=== PATIENT | female | born 1995 | race Caucasian/White ===

== ENCOUNTER 2020-08-08 22:32 | Emergency (ER) | payer BC, MEDICAID ==
[2020-08-08 22:41] VITALS: BP 119/72; PULSE 81
--- NOTE | 2020-08-08 22:57 | EDM.PDOC ---
ED HPI GENERAL MEDICAL PROBLEM - General Chief Complaint: Abdominal Pain Stated Complaint: JODI AMB Time Seen by Provider: 08/08/20 22:42 Source of Information: Reports: Patient, Significant Other (Boyfriend) History Limitations: Reports: No Limitations - History of Present Illness INITIAL COMMENTS - FREE TEXT/NARRATIVE: Ms. Cabrales is a very pleasant 24-year-old woman who is 10 weeks, 3 days gestation by dates (LMP 05/27/2020, she believes) with her second (), who now presents the ED by EMS after developing generalized non-focal abdominal cramps and watery diarrhea around 21:00 tonight. She states that her abdominal pain has waxed and waned, and is currently mild. She states that she has had nausea throughout her , but has not vomited. No vaginal bleeding. No recent constipation, diarrhea, or urinary symptoms. No prior similar symptoms. The patient does not believe that her abdominal pain is related to her diarrhea. She did not take any [id number] or home remedies prior to calling EMS. The patient reports that she had uterine inversion following the delivery of her first child. She had her first appointment with her Chief Order Dispatcher today. She states that everything went well, and that heart tones were obtained. She states that blood was drawn, but she does not know what specific tests were ordered. Her first obstetric ultrasound is scheduled for tomorrow. Here in the ED, the patient is found to be hemodynamically stable, afebrile, saturating 100% on room air. heart tones were measured at 116 bpm. Other than nausea throughout this , the patient denies having a recent fever, chills, sore throat, ear pain, nasal or sinus congestion, cough, dyspnea, chest pain, palpitations, vomiting, constipation, diarrhea, abdominal pain, urinary symptoms, recent weight gain or weight loss, recent bloody bowel movements or black bowel movements, recent joint aches, headaches, or rashes. The patient does not have a PCP. Her Chief Order Dispatcher is Dr. Mikaela Murcia. She has not received an influenza vaccine this season, and declined an offer to get one here in the ED. Abdomen Pain Score (Numeric/FACES): 3 - Related Data Allergies Allergy/AdvReac Type Severity Reaction Status Date / Time No Known Allergies Allergy Verified 03/24/21 22:41 Home Meds: Home Meds . [No Known Home Meds] 04/13/16 [History] Past Medical History HEENT History: Reports: Impaired Vision (wears glasses) : 2 Para: 1 Psychiatric History: Reports: Anxiety, Depression, Suicidal Ideation Hematologic History: Reports: Blood Transfusion(s) - Infectious Disease History Infectious Disease History: Reports: Novel Coronavirus - Past Surgical History HEENT Surgical History: Reports: Oral Surgery (dental extractions) Female Surgical History: Reports: Other (See Below) (Replacement of inverted uterus) Social & Family History - Tobacco Use Tobacco Use Status *Q: Never Tobacco User Second Hand Smoke Exposure: No - Caffeine Use Caffeine Use: Reports: None - Alcohol Use Alcohol Use History: No - Recreational Drug Use Recreational Drug Use: No - Living Situation & Occupation Living situation: Reports: Single, with Significant Other (Boyfriend), with Family (Son) Occupation: Unemployed ED ROS GENERAL - Review of Systems Review Of Systems: Comprehensive ROS is negative, except as noted in HPI. ED EXAM, GENERAL - Physical Exam Exam: See Below Exam Limited By: No Limitations General Appearance: Alert, WD/WN, No Apparent Distress Eye Exam: Bilateral Eye: EOMI, Normal Inspection Ears: Normal External Exam, Hearing Grossly Normal Nose: Normal Inspection Throat/Mouth: Normal Inspection, Normal Lips, Normal Voice, No Airway Compromise Head: Atraumatic, Normocephalic Neck: Normal Inspection, Full Range of Motion Respiratory/Chest: No Respiratory Distress, Lungs Clear, Normal Breath Sounds, No Accessory Muscle Use Cardiovascular: Normal Peripheral Pulses, Regular Rate, Rhythm, No Edema, No Gallop, No JVD, No Murmur, No Rub Peripheral Pulses: 3+: Radial (L), Radial (R) GI/Abdominal: Normal Bowel Sounds, Soft, No Organomegaly, No Distention, No Ab normal Bruit, No Mass, Tender (mild, generalized, not-focal) Back Exam: Normal Inspection, Full Range of Motion, NT Extremities: Normal Inspection, Normal Range of Motion, No Pedal Edema, Normal Capillary Refill Neurological: Alert, Oriented, Normal Cognition, No Motor/Sensory Deficits Psychiatric: Normal Affect Skin Exam: Warm, Dry, Intact, Normal Color, No Rash Course - Vital Signs Last Recorded V/S: Last Vital Signs Temp 36.6 C 08/08/20 22:38 Pulse 81 08/08/20 22:38 Resp 18 08/08/20 22:38 BP 119/72 08/08/20 22:38 Pulse Ox 100 08/08/20 22:38 - Orders/Labs/Meds Orders: Active Orders 24 hr Category Date Time Status Heart Tones [RC] ASDIRECTED Care 08/08/20 23:16 Active OB 1st Tri Sgl 1st Gest [US] Stat Exams 08/08/20 22:57 Taken PATIENT RETYPE [BBK] Routine Lab 08/08/20 23:55 Ordered Labs: Laboratory Tests 08/08/20 08/08/20 Range/Units 23:13 23:13 HCG, Quant 50723.0 mIU/mL Blood Type AB POSITIVE - Re-Assessments/Exams Free Text/Narrative Re-Assessment/Exam: 08/08/20 22:51 As above, the patient is 10 weeks 3 days gestation by dates, and had an uneventful first OB appointment today, but then developed generalized abdominal cramps with diarrhea around 21:00 this evening. No vaginal bleeding. She has had nausea throughout this entire , but no recent vomiting. heart tones here in the ED were measured at 116 bpm. On examination, she has active bowel sounds with mild generalized abdominal tenderness. 08/08/20 22:[address] Thornton at 22:52. He recommended that we proceed with an obstetric ultrasound, as well as a quantitative hCG and ABO/Rh. He mentioned that Dr. Murcia takes her own call, therefore he recommended that I call her back with those results. 08/09/20 00:09 The patient's quantitative hCG is 31,998. Her blood type is A-Pos. 08/09/20 00:21 Transabdominal obstetric ultrasound is read by Kunal as "Single live intrauterine gestation approximately 11-week 3-day gestational age." 08/09/20 00:[address] Murcia at 00:23. She is not recommending any further work-up tonight. Patient may take OTC loperamide if she wishes. Dr. Murcia will cancel the ultrasound scheduled for later today. 08/09/20 00:28 Test results discussed with the patient and her boyfriend. The patient declined an offer for loperamide. Departure - Departure Time of Disposition: 00:28 Disposition: Home, Self-Care 01 Condition: Good Clinical Impression: Abdominal cramps, First trimester , Diarrhea - Discharge Information *PRESCRIPTION DRUG MONITORING PROGRAM REVIEWED*: Not Applicable *COPY OF PRESCRIPTION DRUG MONITORING REPORT IN PATIENT CASSANDRA: Not Applicable Referrals: Mikaela Murcia MD [Primary Care Provider] - Forms: ED Department Discharge Additional Instructions: You were seen in the emergency room after developing generalized abdominal cramps and diarrhea tonight in the setting of being . Work-up in the ER included a quantitative hCG, a blood typing, and an obstetric ultrasound. Your quantitative hCG is 31,998, your blood type is A+, and the obstetric ultrasound found you to have a single at 11 weeks 3 days, with no abnormalities seen. Your case was discussed with your supervisor bleach plant, Dr. Mikaela Murcia, who advised that you may take [id number] loperamide to treat your diarrhea, if you wish. The obstetric ultrasound that was scheduled for today will be canceled. Follow-up with Dr. Murcia after next scheduled appointment. If any other problems, please do not hesitate to return to the ER. Sepsis Event Note (ED) - Evaluation Sepsis Screening Result: No Definite Risk - Focused Exam Vital Signs: Vital Signs Temp Pulse Resp BP Pulse Ox 08/08/20 22:38 36.6 C 81 18 119/72 100 - My Orders Last 24 Hours: My Active Orders 08/08/20 22:57 OB 1st Tri Sgl 1st Gest [US] Stat 08/08/20 23:16 Heart Tones [RC] ASDIRECTED 08/08/20 23:55 PATIENT RETYPE [BBK] Routine - Assessment/Plan Last 24 Hours: My Active Orders 08/08/20 22:57 OB 1st Tri Sgl 1st Gest [US] Stat 08/08/20 23:16 Heart Tones [RC] ASDIRECTED 08/08/20 23:55 PATIENT RETYPE [BBK] Routine
--- NOTE | 2020-08-09 09:16 | US ---
First trimester obstetrical ultrasound: Multiple real-time images were obtained transabdominally. Comparison: No prior study for current is available. Dates: Current ultrasound: [facility] 02/24/21, gestational age 11 weeks 3 days Single intrauterine gestational sac is seen. Small embryo is identified. No subchorionic hemorrhage is seen. Maternal ovaries are seen and appear within normal limits. No free fluid is identified. Measurements: Norco-rump length: 4.53 cm - 11 weeks 3 days Heart rate: 158 bpm Impression: 1. Single intrauterine gestation. Dates as noted above. 2. No complicating process is seen by ultrasound exam. Diagnostic code #1 I agree with preliminary report from [facility], finalized on 08/09/20, 1:19 AM CDT
== END 2020-08-09 00:40 | disposition home or self-care (01) ==
LOC: JD.ED 22:32
DX: O99.891 Other specified diseases and conditions complicating pregnancy (principal); R10.84 Generalized abdominal pain; R19.7 Diarrhea, unspecified; Z3A.11 11 weeks gestation of pregnancy
CPT/HCPCS: 36415; 76801; 76801-26; 84702; 86900; 86901; 99283; 99285-25

== ENCOUNTER 2021-02-26 11:59 | Inpatient (IN) | payer MEDICAID ==
[~2021-02-26 11:59] MED LIST: Bupivacaine 0.25% 10 ML SDV ONE; ePHEDrine 50 MG/ML SDV ONE
[2021-02-26] MEDS ORDERED: Ondansetron 4 MG/2 ML SDV IVPUSH PRN (12:13)
[2021-02-26] MEDS ORDERED: Nalbuphine 10 MG/1 ML Vial IVPUSH PRN (12:13)
[2021-02-26] MEDS ORDERED: Sodium Chloride 0.9% 10 ML Syringe FLUSH PRN (12:13)
[2021-02-26] MEDS ORDERED: Oxytocin/Lactated Ringers 10 UNIT/1,000 ML BAG IV SCH ×2 (12:15)
--- NOTE | 2021-02-26 12:15 | PCM.LDHP ---
L&D History of Present Illness - General Date of Service: 02/26/21 Admit Problem/Dx: Patient Status Order with Admit Dx/Problem 02/26/21 12:13 Patient Status [ADT] Routine Admission Diagnosis/Problem Admission Diagnosis/Problem Normal in third trimester Source of Information: Patient History Limitations: Reports: No Limitations - History of Present Illness Introduction:: Patient is a 25 y/o at 39 2/7 wks who presents for elective IOL. Doing well. - Related Data Allergies/Adverse Reactions: Allergies Allergy/AdvReac Type Severity Reaction Status Date / Time No Known Allergies Allergy Verified 08/08/20 22:41 Home Medications: Home Meds . 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: , Other (See Below) : 2 Para: 1 LMP (Approximate): Other OB/BYN History: uterine inversion with 2016 delivery Psychiatric History: Reports: Anxiety, Depression Hematologic History: Reports: Blood Transfusion(s) Other Hematologic History: 2016 with uterine inversion - Infectious Disease History Infectious Disease History: Reports: Novel Coronavirus - Past Surgical History HEENT Surgical History: Reports: Oral Surgery (dental extractions) Female Surgical History: Reports: Other (See Below) (Replacement of inverted uterus) Social & Family History - Family History Psychiatric: Reports: Depression - Tobacco Use Tobacco Use Status *Q: Never Tobacco User - Caffeine Use Caffeine Use: Reports: None - Alcohol Use Alcohol Use History: No - Recreational Drug Use Recreational Drug Use: No - Living Situation & Occupation Living situation: Reports: Single, with Significant Other (Boyfriend), with Family (Son) Occupation: Unemployed H&P Review of Systems - Review of Systems: Review Of Systems: See Below General: Reports: No Symptoms Pulmonary: Reports: No Symptoms Cardiovascular: Reports: No Symptoms Gastrointestinal: Reports: No Symptoms Genitourinary: Reports: No Symptoms Musculoskeletal: Reports: No Symptoms Neurological: Reports: No Symptoms L&D Exam - Exam Exam: See Below - OB Specific Contraction Intensity: Irritability Movement: Active Heart Tones: Present Heart Tones per Min: 140 Presentation: Vertex - Ornelas Score Ornelas Score Cervix Position: Midposition Ornelas Score Consistency: Soft Ornelas Score Effacement: 51-70% Ornelas Score Dilation: 1-2 cm Ornelas Score Infant's Station: -3 Ornelas Score Total: 6 - Exam General: Alert, Oriented, Cooperative Lungs: Clear to Auscultation, Normal Respiratory Effort Cardiovascular: Regular Rate, Regular Rhythm GI/Abdominal Exam: Soft, Non-Tender Genitourinary: Normal external exam Extremities: Normal Inspection Skin: Warm, Dry, Intact - Problem List (1) 39 weeks gestation of SNOMED Code(s): 26176867 ICD Code: Z3A.39 - 39 WEEKS GESTATION OF Status: Acute Current Visit: Yes (2) Marginal insertion of umbilical cord SNOMED Code(s): 02131896 ICD Code: [id number] - Status: Acute Current Visit: Yes (3) History of uterine inversion SNOMED Code(s): 307663695, 658815279 ICD Code: Z87.42 - PERSONAL HISTORY OF OTH DISEASES OF THE FEMALE GENITAL TRACT Status: Acute Current Visit: Yes Problem List Initiated/Reviewed/Updated: Yes Orders Last 24hrs: Active Orders 24 hr Category Date Time Status Patient Status [ADT] Routine ADT 02/26/21 12:13 Ordered Communication Order [RC] ASDIRECTED Care 02/26/21 12:13 Ordered Communication Order [RC] ASDIRECTED Care 02/26/21 12:13 Ordered Communication Order [RC] ASDIRECTED Care 02/26/21 12:13 Ordered Heart Tones [RC] ASDIRECTED Care 02/26/21 12:13 Ordered Monitoring [RC] INTERMITTENT Care 02/26/21 12:13 Ordered Non Stress Test [RC] PER UNIT ROUTINE Care 02/26/21 12:13 Ordered Notify Provider [RC] ASDIRECTED Care 02/26/21 12:13 Ordered Notify Provider [RC] PRN Care 02/26/21 12:13 Ordered Peripheral IV Care [RC] . DIRECTED Care 02/26/21 12:13 Ordered Up ad [place]ul[place] [RC] ASDIRECTED Care 02/26/21 12:13 Ordered Vaginal Exam [RC] ASDIRECTED Care 02/26/21 12:13 Ordered Vital Signs [RC] ASDIRECTED Care 02/26/21 12:13 Ordered Regular Diet [DIET] Diet 02/26/21 Lunch Ordered CBC W/O DIFF,HEMOGRAM [HEME] Routine Lab 02/26/21 12:13 Ordered CORONAVIRUS COVID-19 BRENDA [MOLEC] Stat Lab 02/26/21 12:15 Ordered RAPID PLASMA REAGIN,RPR [CHEM] Routine Lab 02/26/21 12:13 Ordered TYPE AND SCREEN [BBK] Routine Lab 02/26/21 12:13 Ordered Lactated Ringers [Ringers, Lactated] 1,000 ml Med 02/26/21 12:15 Ordered IV ASDIRECTED Nalbuphine [Nubain] Med 02/26/21 12:13 Ordered 10 mg IVPUSH Q2H PRN Ondansetron [Zofran] Med 02/26/21 12:13 Ordered 4 mg IVPUSH Q4H PRN Oxytocin/Lactated Ringers [Pitocin in LR 10 Units/1,000 Med 02/26/21 12:15 Ordered ML] 10 unit in 1,000 ml IV .CONTINUOUS Oxytocin/Lactated Ringers [Pitocin in LR 10 Units/1,000 Med 02/26/21 12:15 Ordered ML] 10 unit in 1,000 ml IV TITRATE Sodium Chloride 0.9% [Saline Flush] Med 02/26/21 12:13 Ordered 10 ml FLUSH ASDIRECTED PRN Electronic Heart Tones Ext w TOCO [WOMSER] Oth 02/26/21 12:13 Ordered Routine Electronic Heart Tones Internal [WOMSER] Per Unit Oth 02/26/21 12:13 Ordered Routine Peripheral IV Insertion Adult [OM.PC] Routine Oth 02/26/21 12:13 Ordered Resuscitation Status Routine Resus Stat 02/26/21 12:13 Ordered Assessment/Plan Comment:: * Labs to be done * GBS negative * Pitocin and eventual AROM for IOL * Pain management per patient preference * cleaning staff supervisor aware of patient history. Reviewed again recurrence risk of inversion not well documented given rare event in general. * Anticipate
[2021-02-26] MEDS: Lactated Ringers 1,000 ML IV SCH ×2 (14:38→18:34)
[2021-02-26] MEDS ORDERED: ePHEDrine 50 MG/ML SDV IVPUSH PRN (18:41)
[2021-02-26] MEDS ORDERED: diphenhydrAMINE 50 MG/ML SDV IVPUSH PRN (18:41)
[2021-02-26] MEDS ORDERED: Bupivacaine/fentaNYL/NS 100 ML Bag EPIDUR PRN (18:41)
[2021-02-26] MEDS ORDERED: fentaNYL 100 MCG/2 ML SDV EPIDUR PRN (18:41)
--- NOTE | 2021-02-26 19:14 | PCM.PREANE ---
Preanesthetic Assessment - Procedure Proposed Procedure: epidural - Anesthesia/Transfusion/Family Hx Anesthesia History: Prior Anesthesia Without Reaction Family History of Anesthesia Reaction: No Transfusion History: Prior Transfusion Without Reaction - Review of Systems General: Fatigue, Malaise Pulmonary: No Symptoms Cardiovascular: No Symptoms Gastrointestinal: Abdominal Pain (labor) Neurological: No Symptoms Other: Reports: None - Physical Assessment Vital Signs: Last Vital Signs Temp 36.4 C 02/26/21 12:13 Pulse Resp 14 02/26/21 12:13 BP 131/79 02/26/21 12:13 Pulse Ox 99 02/26/21 12:13 Height: 1.75 m Weight: 115.53 kg ASA Class: 2 Mental Status: Alert & Oriented x3 Airway Class: Mallampati = 2 Dentition: Reports: Normal Dentition Thyro-Mental Finger Breadths: 3 Mouth Opening Finger Breadths: 2 ROM/Head Extension: Full Lungs: Clear to Auscultation, Normal Respiratory Effort Cardiovascular: Regular Rate, Regular Rhythm - Lab Values: Laboratory Last Values WBC 7.68 K/mm3 (3.98-10.04) 02/26/21 12:13 RBC 3.99 M/mm3 (3.98-5.22) 02/26/21 12:13 Hgb 11.2 gm/dl (11.2-15.7) 02/26/21 12:13 Hct 35.7 % (34.1-44.9) 02/26/21 12:13 MCV 89.5 fl (79.4-94.8) D 02/26/21 12:13 MCH 28.1 pg (25.6-32.2) 02/26/21 12:13 MCHC 31.4 g/dl (32.2-35.5) L 02/26/21 12:13 RDW Std Deviation 53.6 fL (36.4-46.3) H 02/26/21 12:13 Plt Count 224 K/mm3 (182-369) 02/26/21 12:13 MPV 9.4 fl (9.4-12.3) 02/26/21 12:13 SARS-CoV-2 RNA (BRENDA) Negative (NEGATIVE) 02/26/21 12:27 Blood Type AB POSITIVE 02/26/21 13:22 Gel Antibody Screen Negative 02/26/21 13:22 - Allergies Allergies/Adverse Reactions: Allergies Allergy/AdvReac Type Severity Reaction Status Date / Time No Known Allergies Allergy Verified 02/26/21 14:23 - Anesthesia Plan Pre-Op Medication Ordered: None - Acknowledgements Anesthesia Type Planned: Epidural Pt an Appropriate Candidate for the Planned Anesthesia: Yes Alternatives and Risks of Anesthesia Discussed w Pt/Guardian: Yes Pt/Guardian Understands and Agrees with Anesthesia Plan: Yes PreAnesthesia Questionnaire HEENT History: Reports: Impaired Vision Other HEENT History: glasses Gastrointestinal History: Reports: GERD 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: , Other (See Below) Other OB/BYN History: uterine inversion with 2016 delivery Psychiatric History: Reports: Anxiety, Depression Hematologic History: Reports: Blood Transfusion(s) Other Hematologic History: 2016 with uterine inversion - Infectious Disease History Infectious Disease History: Reports: Novel Coronavirus - Past Surgical History HEENT Surgical History: Reports: Oral Surgery, Other (See Below) Other HEENT Surgeries/Procedures: [place] teeth out Female Surgical History: Reports: Other (See Below) - SUBSTANCE USE Tobacco Use Status *Q: Never Tobacco User Tobacco Use Within Last Twelve Months: No Recreational Drug Use History: No - HOME MEDS Home Medications: Home Meds Citalopram Hydrobromide [Celexa] 20 mg PO DAILY 02/26/21 [History] Ferrous Sulfate [Iron] 325 mg PO DAILY 02/26/21 [History] Pnv No.95/Ferrous Fum/Folic AC [ Tablet] 1 each PO DAILY 02/26/21 [History] - CURRENT (IN HOUSE) MEDS Current Meds: Current Medications Diphenhydramine HCl (Diphenhydramine 50 Mg/Ml Sdv) 25 mg IVPUSH Q6H PRN PRN Reason: pruritis Ephedrine Sulfate (Ephedrine 50 Mg/Ml Sdv) 5 mg IVPUSH ASDIRECTED PRN PRN Reason: Hypotension Fentanyl (Fentanyl 100 Mcg/2 Ml Sdv) 100 mcg EPIDUR Q3H PRN PRN Reason: Pain Last Admin: 02/26/21 18:51 Dose: 100 mcg Documented by: Fentanyl/Bupivacaine HCl (Bupivacaine/Fentanyl/Ns 100 Ml Bag) 100 ml EPIDUR ASDIRECTED PRN PRN Reason: Pain Last Admin: 02/26/21 18:51 Dose: 100 ml Documented by: Oxytocin/Lactated Ringer's (Pitocin In Lr 10 Units/1,000 Ml) 10 unit in 1,000 mls @ 12 mls/hr IV TITRATE TRAVIS; Protocol Last Titration: 02/26/21 18:35 Dose: 6 munits/min, 36 mls/hr Documented by: Oxytocin/Lactated Ringer's (Pitocin In Lr 10 Units/1,000 Ml) 10 unit in 1,000 mls @ 500 mls/hr IV .CONTINUOUS TRAVIS Lactated Ringer's (Ringers, Lactated) 1,000 mls @ 40 mls/hr IV ASDIRECTED TRAVIS Last Admin: 02/26/21 18:34 Dose: 40 mls/hr Documented by: Nalbuphine HCl (Nalbuphine 10 Mg/1 Ml Vial) 10 mg IVPUSH Q2H PRN PRN Reason: Pain Ondansetron HCl (Ondansetron 4 Mg/2 Ml Sdv) 4 mg IVPUSH Q4H PRN PRN Reason: Nausea/Vomiting Sodium Chloride (Sodium Chloride 0.9% 10 Ml Syringe) 10 ml FLUSH ASDIRECTED PRN PRN Reason: Keep Vein Open
--- NOTE | 2021-02-26 20:24 | PCM.PNLD ---
Labor Progress Note - VS & Meds Vital Signs: Last Vital Signs Temp 36.4 C 02/26/21 12:13 Pulse Resp 14 02/26/21 12:13 BP 131/79 02/26/21 12:13 Pulse Ox 99 02/26/21 12:13 Active Medications: Current Medications Diphenhydramine HCl (Diphenhydramine 50 Mg/Ml Sdv) 25 mg IVPUSH Q6H PRN PRN Reason: pruritis Ephedrine Sulfate (Ephedrine 50 Mg/Ml Sdv) 5 mg IVPUSH ASDIRECTED PRN PRN Reason: Hypotension Fentanyl (Fentanyl 100 Mcg/2 Ml Sdv) 100 mcg EPIDUR Q3H PRN PRN Reason: Pain Last Admin: 02/26/21 18:51 Dose: 100 mcg Documented by: Fentanyl/Bupivacaine HCl (Bupivacaine/Fentanyl/Ns 100 Ml Bag) 100 ml EPIDUR ASDIRECTED PRN PRN Reason: Pain Last Admin: 02/26/21 18:51 Dose: 100 ml Documented by: Oxytocin/Lactated Ringer's (Pitocin In Lr 10 Units/1,000 Ml) 10 unit in 1,000 mls @ 12 mls/hr IV TITRATE TRAVIS; Protocol Last Titration: 02/26/21 18:35 Dose: 6 munits/min, 36 mls/hr Documented by: Oxytocin/Lactated Ringer's (Pitocin In Lr 10 Units/1,000 Ml) 10 unit in 1,000 mls @ 500 mls/hr IV .CONTINUOUS TRAVIS Lactated Ringer's (Ringers, Lactated) 1,000 mls @ 40 mls/hr IV ASDIRECTED TRAVIS Last Admin: 02/26/21 18:34 Dose: 40 mls/hr Documented by: Nalbuphine HCl (Nalbuphine 10 Mg/1 Ml Vial) 10 mg IVPUSH Q2H PRN PRN Reason: Pain Ondansetron HCl (Ondansetron 4 Mg/2 Ml Sdv) 4 mg IVPUSH Q4H PRN PRN Reason: Nausea/Vomiting Sodium Chloride (Sodium Chloride 0.9% 10 Ml Syringe) 10 ml FLUSH ASDIRECTED PRN PRN Reason: Keep Vein Open - Uterine Contractions Uterine Monitoring Mode: External [place] Contraction Intensity: Mild - Monitoring Monitor Mode: External Ultrasound Heart Rate (FHR) Baseline: 120 Heart Rate (FHR) Variability: Moderate (6-25 bpm) Accelerations: Present, 15x15 Decelerations: None Strip Review: Category I - Vaginal Exam Dilation (cm): 4 Effacement (Percent): 80 Station: -2 Cervical Position: Midposition - Labor Progress (Free Text) Labor Progress: AROM done around 1600. Became more uncomfortable and just completed epidural around 191. RN team with difficulty picking up contractions. Pitocin currently at 8. IUPC placed. Very small/weak contraction noted. Will continue to increase per protocol
[2021-02-26] MEDS ORDERED: Terbutaline 1 MG/ML SDV ONE (22:35)
[2021-02-26] MEDS ORDERED: Methylergonovine 0.2 MG/1 ML Amp IM STA (23:38)
--- NOTE | 2021-02-26 23:39 | PCM.DEL ---
L & D Note - General Info Date of Service: 02/26/21 - Delivery Note Labor: Induced by ARM, Induced by Oxytocin Delivery Outcome: Livebirth Infant Delivery Method: Spontaneous Vaginal Delivery-Single Infant Delivery Mode: Spontaneous Presentation: Vertex Nuchal Cord: None Anesthesia Type: Epidural Amniotic Fluid Description: Clear Episiotomy Type: None Laceration: None Placenta: Intact, Spontaneous Cord: 3 Vessels Estimated Blood Loss: 150 Resuscitation Needed: Yes [place]: Bulb Syringe, Stimulated, Warmed, [place] Used, Warmer Used Delivery Comments (Free Text/Narrative):: Patient found to be complete and began pushing. With maternal pushing effort head delivered from JEANNINE presentation. No nuchal cord present. With gentle downward traction the shoulders and body delivered. Infant placed on maternal abdomen. Cord clamped and cut. Cord blood obtained. Placenta allowed time to separate and expelled intact. Inspection of perineum showed no lacerations. There was slightly poor tone to the BONIFACIO and so give 0.2 mg of methergine. - General Info Date of Service: 02/26/21 - Patient Data Vitals - Most Recent: Last Vital Signs Temp 36.4 C 02/26/21 12:13 Pulse Resp 14 02/26/21 12:13 BP 131/79 02/26/21 12:13 Pulse Ox 99 02/26/21 12:13 Weight - Most Recent: 115.53 kg - Problem List & Annotations (1) 39 weeks gestation of SNOMED Code(s): 51183678 Code(s): Z3A.39 - 39 WEEKS GESTATION OF Status: Acute Current Visit: Yes (2) Marginal insertion of umbilical cord SNOMED Code(s): 03231827 Code(s): YEK1475 - Status: Acute Current Visit: Yes (3) History of uterine inversion SNOMED Code(s): 171463624, 022630871 Code(s): Z87.42 - PERSONAL HISTORY OF OTH DISEASES OF THE FEMALE GENITAL TRACT Status: Acute Current Visit: Yes - Problem List Review Problem List Initiated/Reviewed/Updated: Yes - My Orders Last 24 Hours: My Active Orders 02/26/21 Lunch Regular Diet [DIET] 02/26/21 12:13 Patient Status [ADT] Routine Communication Order [RC] ASDIRECTED Communication Order [RC] ASDIRECTED Communication Order [RC] ASDIRECTED Notify Provider [RC] ASDIRECTED Notify Provider [RC] PRN Peripheral IV Care [RC] Q4HR Up ad [place] [RC] ASDIRECTED Vital Signs [RC] 03,,, Nalbuphine [Nubain] 10 mg IVPUSH Q2H PRN Ondansetron [Zofran] 4 mg IVPUSH Q4H PRN Sodium Chloride 0.9% [Saline Flush] 10 ml FLUSH ASDIRECTED PRN Electronic Heart Tones Ext w TOCO [WOMSER] Routine Electronic Heart Tones Internal [WOMSER] Per Unit Routine Peripheral IV Insertion Adult [OM.PC] Routine Resuscitation Status Routine 02/26/21 12:15 Lactated Ringers [Ringers, Lactated] 1,000 ml IV ASDIRECTED Oxytocin/Lactated Ringers [Pitocin in LR 10 Units/1,000 ML] 10 unit in 1,000 ml IV .CONTINUOUS Oxytocin/Lactated Ringers [Pitocin in LR 10 Units/1,000 ML] 10 unit in 1,000 ml IV TITRATE 02/26/21 23:36 Patient Status Manage Transfer [TRANSFER] Routine 02/26/21 23:38 Methylergonovine [Methergine] 0.2 mg IM NOW STA 02/27/21 09:00 Citalopram [Celexa] 20 mg PO DAILY - Assessment Assessment:: PPD#0 - Plan Plan:: * Routine cares * Breast feeding * Discharge home in 2 days
[2021-02-27] MEDS ORDERED: Witch Hazel Medicated Pads 40/Jar TOP PRN (00:43)
[2021-02-27] MEDS ORDERED: Benzocaine/Menthol 20%-0.5% Spray 78 GM Cannister TOP PRN (00:43)
[2021-02-27] MEDS ORDERED: Docusate Sodium 100 MG Cap PO PRN (00:43)
[2021-02-27] MEDS: Ibuprofen 600 MG Tab PO PRN ×3 (00:59→19:33)
--- NOTE | 2021-02-27 07:51 | PCM.PNPP ---
- General Info Date of Service: 02/27/21 Functional Status: Reports: Pain Controlled, Tolerating Diet, Ambulating, Urinating - Review of Systems General: Reports: No Symptoms Pulmonary: Reports: No Symptoms Cardiovascular: Reports: No Symptoms Gastrointestinal: Reports: No Symptoms Genitourinary: Reports: No Symptoms Musculoskeletal: Reports: No Symptoms Neurological: Reports: No Symptoms - General Info Date of Service: 02/27/21 - Patient Data Vital Signs - Most Recent: Last Vital Signs Temp 36.4 C 02/26/21 12:13 Pulse Resp 14 02/26/21 12:13 BP 131/79 02/26/21 12:13 Pulse Ox 99 02/26/21 12:13 Weight - Most Recent: 115.53 kg I&O - Last 24 Hours: Intake & Output 02/26/21 02/27/21 02/27/21 22:59 06:59 14:59 Intake Total 3900 Output Total 450 172 Balance -450 3728 Lab Results - Last 24 Hours: Laboratory Results - last 24 hr 02/26/21 02/26/21 02/26/21 Range/Units 12:13 12:27 13:22 WBC 7.68 (3.98-10.04) K/mm3 RBC 3.99 (3.98-5.22) M/mm3 Hgb 11.2 (11.2-15.7) gm/dl Hct 35.7 (34.1-44.9) % MCV 89.5 D (79.4-94.8) fl MCH 28.1 (25.6-32.2) pg MCHC 31.4 L (32.2-35.5) g/dl RDW Std Deviation 53.6 H (36.4-46.3) fL Plt Count 224 (182-369) K/mm3 MPV 9.4 (9.4-12.3) fl RPR Non-reactive (NONREACTIVE) SARS-CoV-2 RNA (BRENDA) Negative (NEGATIVE) Blood Type Gel Antibody Screen 02/26/21 Range/Units 13:22 WBC (3.98-10.04) K/mm3 RBC (3.98-5.22) M/mm3 Hgb (11.2-15.7) gm/dl Hct (34.1-44.9) % MCV (79.4-94.8) fl MCH (25.6-32.2) pg MCHC (32.2-35.5) g/dl RDW Std Deviation (36.4-46.3) fL Plt Count (182-369) K/mm3 MPV (9.4-12.3) fl RPR (NONREACTIVE) SARS-CoV-2 RNA (BRENDA) (NEGATIVE) Blood Type AB POSITIVE Gel Antibody Screen Negative Med Orders - Current: Current Medications Acetaminophen (Acetaminophen 325 Mg Tab) 650 mg PO Q4H PRN PRN Reason: mild pain or fever Benzocaine/Menthol (Benzocaine/Menthol 20%-0.5% [place] 78 Gm Cannister) 0 gm TOP ASDIRECTED PRN PRN Reason: Perineal Comfort Measure Last Admin: 02/27/21 00:58 Dose: 1 can Documented by: Citalopram Hydrobromide (Citalopram 20 Mg Tab) 20 mg PO DAILY TRAVIS Docusate Sodium (Docusate Sodium 100 Mg Cap) 100 mg PO BID PRN PRN Reason: Constipation Ibuprofen (Ibuprofen 600 Mg Tab) 600 mg PO Q6H PRN PRN Reason: Mild pain or fever Last Admin: 02/27/21 00:59 Dose: 600 mg Documented by: Rajinder Grover (Rajinder Grover Medicated Pads 40/Jar) 1 pad TOP ASDIRECTED PRN PRN Reason: Perineal Comfort Measure Last Admin: 02/27/21 00:59 Dose: 1 tub Documented by: Discontinued Medications Diphenhydramine HCl (Diphenhydramine 50 Mg/Ml Sdv) 25 mg IVPUSH Q6H PRN PRN Reason: pruritis Ephedrine Sulfate (Ephedrine 50 Mg/Ml Sdv) 5 mg IVPUSH ASDIRECTED PRN PRN Reason: Hypotension Fentanyl (Fentanyl 100 Mcg/2 Ml Sdv) 100 mcg EPIDUR Q3H PRN PRN Reason: Pain Last Admin: 02/26/21 18:51 Dose: 100 mcg Documented by: Fentanyl/Bupivacaine HCl (Bupivacaine/Fentanyl/Ns 100 Ml Bag) 100 ml EPIDUR ASDIRECTED PRN PRN Reason: Pain Last Admin: 02/26/21 18:51 Dose: 100 ml Documented by: Oxytocin/Lactated Ringer's (Pitocin In Lr 10 Units/1,000 Ml) 10 unit in 1,000 mls @ 12 mls/hr IV TITRATE TRAVIS; Protocol Last Titration: 02/26/21 18:35 Dose: 6 munits/min, 36 mls/hr Documented by: Oxytocin/Lactated Ringer's (Pitocin In Lr 10 Units/1,000 Ml) 10 unit in 1,000 mls @ 500 mls/hr IV .CONTINUOUS TRAVIS Last Admin: 02/27/21 00:30 Dose: 500 mls/hr Documented by: Lactated Ringer's (Ringers, Lactated) 1,000 mls @ 40 mls/hr IV ASDIRECTED TRAVIS Last Admin: 02/26/21 18:34 Dose: 40 mls/hr Documented by: Methylergonovine Maleate (Methylergonovine 0.2 Mg/1 Ml Amp) 0.2 mg IM NOW STA Stop: 02/26/21 23:39 Last Admin: 02/26/21 23:30 Dose: 0.2 mg Documented by: Nalbuphine HCl (Nalbuphine 10 Mg/1 Ml Vial) 10 mg IVPUSH Q2H PRN PRN Reason: Pain Ondansetron HCl (Ondansetron 4 Mg/2 Ml Sdv) 4 mg IVPUSH Q4H PRN PRN Reason: Nausea/Vomiting Last Admin: 02/27/21 00:26 Dose: 4 mg Documented by: Sodium Chloride (Sodium Chloride 0.9% 10 Ml Syringe) 10 ml FLUSH ASDIRECTED PRN PRN Reason: Keep Vein Open Terbutaline Sulfate (Terbutaline 1 Mg/Ml Sdv) Confirm Administered Dose 1 mg .ROUTE .STK-MED ONE Stop: 02/26/21 22:36 Last Admin: 02/27/21 03:33 Dose: Not Given Documented by: - Interaction Infant Disposition, : to Nursery Infant Interaction: Holding Infant Feeding: Other (see below) Support Person: Significant Other - Recovery Exam Fundal Tone: Firm Fundal Level: At Umbilicus Fundal Placement: Midline Lochia Amount: Small Lochia Color: Rubra/Red Perineum Description: Intact, Minimal Bruising/Swelling Bladder Status: Nonpalpable Urinary Elimination: Not Voiding - Exam General: Alert, Oriented, Cooperative GI/Abdominal Exam: Soft, Non-Tender - Problem List & Annotations (1) 39 weeks gestation of SNOMED Code(s): 25665657 Code(s): Z3A.39 - 39 WEEKS GESTATION OF Status: Acute Current Visit: Yes (2) Marginal insertion of umbilical cord SNOMED Code(s): 97410901 Code(s): FLC5857 - Status: Acute Current Visit: Yes (3) History of uterine inversion SNOMED Code(s): 310038645, 786728179 Code(s): Z87.42 - PERSONAL HISTORY OF OTH DISEASES OF THE FEMALE GENITAL TRACT Status: Acute Current Visit: Yes (4) Vaginal delivery SNOMED Code(s): 054379906 Code(s): O80 - ENCOUNTER FOR FULL-TERM UNCOMPLICATED DELIVERY Status: Acute Current Visit: Yes - Problem List Review Problem List Initiated/Reviewed/Updated: Yes - My Orders Last 24 Hours: My Active Orders 02/26/21 12:13 Resuscitation Status Routine 02/27/21 00:43 Acetaminophen [TylenoL] 650 mg PO Q4H PRN Benzocaine/Menthol [Dermoplast Pain Relief 20%-0.5% [place]] See Dose Instructions TOP ASDIRECTED PRN Docusate Sodium [Colace] 100 mg PO BID PRN Ibuprofen [Motrin] 600 mg PO Q6H PRN witch Karlee [Tucks] 1 pad TOP ASDIRECTED PRN Heat Therapy [OM.PC] PRN 02/27/21 00:43 Activity as Tolerated [RC] PER UNIT ROUTINE Vital Signs [RC] 03,,15,21 Assess Lochia [WOMSER] Per Unit Routine Assess Uterine Involution [WOMSER] Per Unit Routine Breast Pump [WOMSER] Per Unit Routine Ice Therapy [OM.PC] Per Unit Routine Perineal Care [OM.PC] Per Unit Routine Peripheral IV Discontinue [OM.PC] Routine Sitz Bath [OM.PC] Per Unit Routine 02/27/21 Breakfast Regular Diet [DIET] 02/27/21 09:00 Citalopram [Celexa] 20 mg PO DAILY 02/28/21 00:43 Heat Therapy [OM.PC] PRN - Assessment Assessment:: PPD#1 - Plan Plan:: * Routine cares * Breast feeding (baby currently to Level 2 nursery for O2 requirement) * Discharge home tomorrow
[2021-02-27] MEDS ORDERED: Methylergonovine 0.2 MG/1 ML Amp ONE (09:00)
[2021-02-27] MEDS ORDERED: Citalopram 20 MG Tab PO SCH ×2 (09:00→09:13)
--- NOTE | 2021-02-27 10:12 | PCM48HPAN ---
Post Anesthesia Note - EVALUATION WITHIN 48HRS OF ANESTHETIC Vital Signs in Normal Range: Yes Patient Participated in Evaluation: Yes Respiratory Function Stable: Yes Airway Patent: Yes Cardiovascular Function Stable: Yes Hydration Status Stable: Yes Pain Control Satisfactory: Yes Nausea and Vomiting Control Satisfactory: Yes Mental Status Recovered: Yes Vital Signs: Last Vital Signs Temp 97.9 F 02/27/21 09:00 Pulse 90 02/27/21 09:00 Resp 14 02/27/21 09:00 BP 126/69 02/27/21 09:00 Pulse Ox 100 02/27/21 09:00 - COMMENTS/OBSERVATIONS Free Text/Narrative:: Patient resting in bed when visiting with patient. Patient stated that she was "very happy" with her epidural and labor experience. Patient complained of mild back pain in epidural placement site but is controlled and has not gotten worse. Discussed signs and symptoms of infection, post-dural puncture headaches, post- depression, and if patient experiences increased back discomfort. Encouraged patient if any of those signs or symptoms develop to contact OB/Anesthesia so the patient can be treated accordingly if needed. Patient verbalized understanding. Patient did not voice any questions or concerns at this time. Juliana Park, [employer] MACHINE OPERATOR
[2021-02-27] MEDS: Acetaminophen 325 MG Tab PO PRN (20:43)
[2021-02-28] MEDS: Acetaminophen 325 MG Tab PO PRN ×2 (02:03→06:47)
[2021-02-28] MEDS: Ibuprofen 600 MG Tab PO PRN (05:18)
--- NOTE | 2021-02-28 07:08 | PCM.PNPP ---
- General Info Date of Service: 02/28/21 Functional Status: Reports: Pain Controlled, Tolerating Diet, Ambulating, Urinating, New Symptoms - Review of Systems General: Reports: No Symptoms Pulmonary: Reports: No Symptoms Cardiovascular: Reports: No Symptoms Gastrointestinal: Reports: No Symptoms Genitourinary: Reports: No Symptoms Musculoskeletal: Reports: Back Pain - Patient Data Vital Signs - Most Recent: Last Vital Signs Temp 36.9 C 02/27/21 19:31 Pulse 81 02/28/21 05:16 Resp 16 02/27/21 19:31 BP 108/51 L 02/28/21 05:16 Pulse Ox 98 02/28/21 05:16 Weight - Most Recent: 115.53 kg Med Orders - Current: Current Medications Acetaminophen (Acetaminophen 325 Mg Tab) 650 mg PO Q4H PRN PRN Reason: mild pain or fever Last Admin: 02/28/21 06:47 Dose: 650 mg Documented by: Benzocaine/Menthol (Benzocaine/Menthol 20%-0.5% [place] 78 Gm Cannister) 0 gm TOP ASDIRECTED PRN PRN Reason: Perineal Comfort Measure Last Admin: 02/27/21 00:58 Dose: 1 can Documented by: Citalopram Hydrobromide (Citalopram 20 Mg Tab) 20 mg PO DAILY TRAVIS Docusate Sodium (Docusate Sodium 100 Mg Cap) 100 mg PO BID PRN PRN Reason: Constipation Ibuprofen (Ibuprofen 600 Mg Tab) 600 mg PO Q6H PRN PRN Reason: Mild pain or fever Last Admin: 02/28/21 05:18 Dose: 600 mg Documented by: Rajinder Grover (Rajinder Grover Medicated Pads 40/Jar) 1 pad TOP ASDIRECTED PRN PRN Reason: Perineal Comfort Measure Last Admin: 02/27/21 00:59 Dose: 1 tub Documented by: Discontinued Medications Bupivacaine HCl (Bupivacaine 0.25% 10 Ml Sdv) 10 ml .ROUTE .STK-MED ONE Stop: 02/26/21 00:01 Citalopram Hydrobromide (Citalopram 20 Mg Tab) 20 mg PO DAILY TRAVIS Diphenhydramine HCl (Diphenhydramine 50 Mg/Ml Sdv) 25 mg IVPUSH Q6H PRN PRN Reason: pruritis Ephedrine Sulfate (Ephedrine 50 Mg/Ml Sdv) 5 mg IVPUSH ASDIRECTED PRN PRN Reason: Hypotension Ephedrine Sulfate (Ephedrine 50 Mg/Ml Sdv) 50 mg .ROUTE .STK-MED ONE Stop: 02/26/21 00:01 Fentanyl (Fentanyl 100 Mcg/2 Ml Sdv) 100 mcg EPIDUR Q3H PRN PRN Reason: Pain Last Admin: 02/26/21 18:51 Dose: 100 mcg Documented by: Fentanyl/Bupivacaine HCl (Bupivacaine/Fentanyl/Ns 100 Ml Bag) 100 ml EPIDUR ASDIRECTED PRN PRN Reason: Pain Last Admin: 02/26/21 18:51 Dose: 100 ml Documented by: Oxytocin/Lactated Ringer's (Pitocin In Lr 10 Units/1,000 Ml) 10 unit in 1,000 mls @ 12 mls/hr IV TITRATE TRAVIS; Protocol Last Titration: 02/26/21 18:35 Dose: 6 munits/min, 36 mls/hr Documented by: Oxytocin/Lactated Ringer's (Pitocin In Lr 10 Units/1,000 Ml) 10 unit in 1,000 mls @ 500 mls/hr IV .CONTINUOUS TRAVIS Last Admin: 02/27/21 00:30 Dose: 500 mls/hr Documented by: Lactated Ringer's (Ringers, Lactated) 1,000 mls @ 40 mls/hr IV ASDIRECTED TRAVIS Last Admin: 02/26/21 18:34 Dose: 40 mls/hr Documented by: Methylergonovine Maleate (Methylergonovine 0.2 Mg/1 Ml Amp) 0.2 mg IM NOW STA Stop: 02/26/21 23:39 Last Admin: 02/26/21 23:30 Dose: 0.2 mg Documented by: Methylergonovine Maleate (Methylergonovine 0.2 Mg/1 Ml Amp) 0.2 mg .ROUTE .STK- MED ONE Stop: 02/27/21 09:01 Nalbuphine HCl (Nalbuphine 10 Mg/1 Ml Vial) 10 mg IVPUSH Q2H PRN PRN Reason: Pain Ondansetron HCl (Ondansetron 4 Mg/2 Ml Sdv) 4 mg IVPUSH Q4H PRN PRN Reason: Nausea/Vomiting Last Admin: 02/27/21 00:26 Dose: 4 mg Documented by: Sodium Chloride (Sodium Chloride 0.9% 10 Ml Syringe) 10 ml FLUSH ASDIRECTED PRN PRN Reason: Keep Vein Open Terbutaline Sulfate (Terbutaline 1 Mg/Ml Sdv) Confirm Administered Dose 1 mg .ROUTE .STK-MED ONE Stop: 02/26/21 22:36 Last Admin: 02/27/21 03:33 Dose: Not Given Documented by: - Infant Interaction Infant Disposition, : [place] to Nursery Interaction: Holding Feeding: Other (see below) Support Person: Significant Other - Recovery Exam Fundal Tone: Firm Fundal Level: 1 Fingerbreadths Below Umbilicus Fundal Placement: Midline Lochia Amount: Scant Lochia Color: Rubra/Red Perineum Description: Intact, Minimal Bruising/Swelling Bladder Status: Voiding Urinary Elimination: Voided - Exam General: Alert, Oriented, Cooperative GI/Abdominal Exam: Soft, Non-Tender - Problem List & Annotations (1) 39 weeks gestation of SNOMED Code(s): 61025057 Code(s): Z3A.39 - 39 WEEKS GESTATION OF Status: Acute Current Visit: Yes (2) Marginal insertion of umbilical cord SNOMED Code(s): 02948768 Code(s): NTG6760 - Status: Acute Current Visit: Yes (3) History of uterine inversion SNOMED Code(s): 758158613, 224837006 Code(s): Z87.42 - PERSONAL HISTORY OF OTH DISEASES OF THE FEMALE GENITAL TRACT Status: Acute Current Visit: Yes (4) Vaginal delivery SNOMED Code(s): 237977447 Code(s): O80 - ENCOUNTER FOR FULL-TERM UNCOMPLICATED DELIVERY Status: Acute Current Visit: Yes - Problem List Review Problem List Initiated/Reviewed/Updated: Yes - My Orders Last 24 Hours: My Active Orders 02/27/21 Breakfast Regular Diet [DIET] 02/27/21 09:13 Citalopram [Celexa] 20 mg PO DAILY 02/28/21 00:43 Heat Therapy [OM.PC] PRN 02/28/21 07:07 Ready for Discharge [RC] PER UNIT ROUTINE - Assessment Assessment:: PPD#2 - Plan Plan:: * Routine cares * Breast feeding (baby currently to Level 2 nursery for O2 requirement) * Patient with more back pain overnight. Reviewed option of rare Percocet use in hospital. She will try to maximize other supportive intervention first * Discharge today
--- NOTE | 2021-02-28 07:09 | PCM.DCSUM1 ---
Discharge Summary - Discharge Data Discharge Date: 02/28/21 Discharge Disposition: Home, Self-Care 01 Condition: Good - Referral to Home Health Primary Care Physician: PCP None - Discharge Diagnosis/Problem(s) (1) 39 weeks gestation of SNOMED Code(s): 39505564 ICD Code: Z3A.39 - 39 WEEKS GESTATION OF Status: Acute Current Visit: Yes (2) Marginal insertion of umbilical cord SNOMED Code(s): 40630604 ICD Code: TVF1227 - Status: Acute Current Visit: Yes (3) History of uterine inversion SNOMED Code(s): 374728383, 812307304 ICD Code: Z87.42 - PERSONAL HISTORY OF OTH DISEASES OF THE FEMALE GENITAL TRACT Status: Acute Current Visit: Yes (4) Vaginal delivery SNOMED Code(s): 147794207 ICD Code: O80 - ENCOUNTER FOR FULL-TERM UNCOMPLICATED DELIVERY Status: Acute Current Visit: Yes - Patient Summary/Data Complications: None Consults: None Recommended Follow-up Testing/Procedures: Follow up in 3 weeks for check Hospital Course: 25 y/o at 39 2/7 wks presented for elective IOL . Done with pitocin and AROM. Progressed well and underwent uncomplicated . See delivery note. did well and was discharged home on PPD#2 - Patient Instructions Diet: Regular Diet as Tolerated Activity: As Tolerated Activity, Other: Pelvic rest for 6 weeks Driving: May Drive Today Showering/Bathing: May Shower Showering/Bathing, Other: May bathe Notify Provider of: Fever, Increased Pain, Swelling and Redness, Drainage, Nausea and/or Vomiting - Discharge Plan *PRESCRIPTION DRUG MONITORING PROGRAM REVIEWED*: No *COPY OF PRESCRIPTION DRUG MONITORING REPORT IN PATIENT CASSANDRA: No Home Medications: Home Meds Citalopram Hydrobromide [Celexa] 20 mg PO DAILY 02/26/21 [History] Pnv No.95/Ferrous Fum/Folic AC [ Tablet] 1 each PO DAILY 02/26/21 [History] Docusate Sodium [Colace] 100 mg PO BID PRN cap 02/27/21 [Rx] Ibuprofen [Motrin] 600 mg PO Q6H PRN tablet 02/27/21 [Rx] Patient Handouts: Care After Vaginal Delivery Referrals: Mikaela Murcia MD [Physician] - (3 weeks for check ) - Discharge Summary/Plan Comment DC Time >30 min.: No Total # of Minutes for Discharge Time: 15 - Patient Data Vitals - Most Recent: Last Vital Signs Temp 36.9 C 02/27/21 19:31 Pulse 81 02/28/21 05:16 Resp 16 02/27/21 19:31 BP 108/51 L 02/28/21 05:16 Pulse Ox 98 02/28/21 05:16 Weight - Most Recent: 115.53 kg Med Orders - Current: Current Medications Acetaminophen (Acetaminophen 325 Mg Tab) 650 mg PO Q4H PRN PRN Reason: mild pain or fever Last Admin: 02/28/21 06:47 Dose: 650 mg Documented by: Benzocaine/Menthol (Benzocaine/Menthol 20%-0.5% [place] 78 Gm Cannister) 0 gm TOP ASDIRECTED PRN PRN Reason: Perineal Comfort Measure Last Admin: 02/27/21 00:58 Dose: 1 can Documented by: Citalopram Hydrobromide (Citalopram 20 Mg Tab) 20 mg PO DAILY TRAVIS Docusate Sodium (Docusate Sodium 100 Mg Cap) 100 mg PO BID PRN PRN Reason: Constipation Ibuprofen (Ibuprofen 600 Mg Tab) 600 mg PO Q6H PRN PRN Reason: Mild pain or fever Last Admin: 02/28/21 05:18 Dose: 600 mg Documented by: Rajinder Grover (Rajinder Grover Medicated Pads 40/Jar) 1 pad TOP ASDIRECTED PRN PRN Reason: Perineal Comfort Measure Last Admin: 02/27/21 00:59 Dose: 1 tub Documented by: Discontinued Medications Bupivacaine HCl (Bupivacaine 0.25% 10 Ml Sdv) 10 ml .ROUTE .STK-MED ONE Stop: 02/26/21 00:01 Citalopram Hydrobromide (Citalopram 20 Mg Tab) 20 mg PO DAILY TRAVIS Diphenhydramine HCl (Diphenhydramine 50 Mg/Ml Sdv) 25 mg IVPUSH Q6H PRN PRN Reason: pruritis Ephedrine Sulfate (Ephedrine 50 Mg/Ml Sdv) 5 mg IVPUSH ASDIRECTED PRN PRN Reason: Hypotension Ephedrine Sulfate (Ephedrine 50 Mg/Ml Sdv) 50 mg .ROUTE .STK-MED ONE Stop: 02/26/21 00:01 Fentanyl (Fentanyl 100 Mcg/2 Ml Sdv) 100 mcg EPIDUR Q3H PRN PRN Reason: Pain Last Admin: 02/26/21 18:51 Dose: 100 mcg Documented by: Fentanyl/Bupivacaine HCl (Bupivacaine/Fentanyl/Ns 100 Ml Bag) 100 ml EPIDUR ASDIRECTED PRN PRN Reason: Pain Last Admin: 02/26/21 18:51 Dose: 100 ml Documented by: Oxytocin/Lactated Ringer's (Pitocin In Lr 10 Units/1,000 Ml) 10 unit in 1,000 mls @ 12 mls/hr IV TITRATE TRAVIS; Protocol Last Titration: 02/26/21 18:35 Dose: 6 munits/min, 36 mls/hr Documented by: Oxytocin/Lactated Ringer's (Pitocin In Lr 10 Units/1,000 Ml) 10 unit in 1,000 mls @ 500 mls/hr IV .CONTINUOUS TRAVIS Last Admin: 02/27/21 00:30 Dose: 500 mls/hr Documented by: Lactated Ringer's (Ringers, Lactated) 1,000 mls @ 40 mls/hr IV ASDIRECTED TRAVIS Last Admin: 02/26/21 18:34 Dose: 40 mls/hr Documented by: Methylergonovine Maleate (Methylergonovine 0.2 Mg/1 Ml Amp) 0.2 mg IM NOW STA Stop: 02/26/21 23:39 Last Admin: 02/26/21 23:30 Dose: 0.2 mg Documented by: Methylergonovine Maleate (Methylergonovine 0.2 Mg/1 Ml Amp) 0.2 mg .ROUTE .[facility]- MED ONE Stop: 02/27/21 09:01 Nalbuphine HCl (Nalbuphine 10 Mg/1 Ml Vial) 10 mg IVPUSH Q2H PRN PRN Reason: Pain Ondansetron HCl (Ondansetron 4 Mg/2 Ml Sdv) 4 mg IVPUSH Q4H PRN PRN Reason: Nausea/Vomiting Last Admin: 02/27/21 00:26 Dose: 4 mg Documented by: Sodium Chloride (Sodium Chloride 0.9% 10 Ml Syringe) 10 ml FLUSH ASDIRECTED PRN PRN Reason: Keep Vein Open Terbutaline Sulfate (Terbutaline 1 Mg/Ml Sdv) Confirm Administered Dose 1 mg .ROUTE .STK-MED ONE Stop: 02/26/21 22:36 Last Admin: 02/27/21 03:33 Dose: Not Given Documented by:
[2021-02-28 13:28] VITALS: BP 122/70; PULSE 72
--- NOTE | 2021-03-01 13:53 | PCM.SN.2 ---
Time Documentation #1 Interpretation EKG Date: 03/01/21 Time: 13:44 Rhythm: Other (sinus tachycardia) Rate (Beats/Min): 136 [place]: Normal P-Wave: Present QRS: Normal ST-T: Normal QT: Normal
== END 2021-02-28 11:20 | disposition home or self-care (01) | DRG 807 ==
LOC: JD.OB 11:59 → OBSVTOIN 23:17 → JD.OB 23:17
PROVIDERS: ADMIT Obstetrics & Gynecology; ATTEND Obstetrics & Gynecology
PROC: 10E0XZZ Delivery of Products of Conception, External Approach (ICD-10-PCS; principal; 2021-02-26)
PROC: 10907ZC Drainage of Amniotic Fluid, Therapeutic from Products of Conception, Via Natural or Artificial Opening (ICD-10-PCS; 2021-02-26)
PROC: 3E033VJ Introduction of Other Hormone into Peripheral Vein, Percutaneous Approach (ICD-10-PCS; 2021-02-26)
PROC: 10H07YZ Insertion of Other Device into Products of Conception, Via Natural or Artificial Opening (ICD-10-PCS; 2021-02-26)
PROC: 3E0R3BZ Introduction of Anesthetic Agent into Spinal Canal, Percutaneous Approach (ICD-10-PCS; 2021-02-26)
PROC: 00HU33Z Insertion of Infusion Device into Spinal Canal, Percutaneous Approach (ICD-10-PCS; 2021-02-26)
DX: O99.62 Diseases of the digestive system complicating childbirth (principal); Z37.0 Single live birth; K21.9 Gastro-esophageal reflux disease without esophagitis; O99.344 Other mental disorders complicating childbirth; F41.9 Anxiety disorder, unspecified; F32.9 Major depressive disorder, single episode, unspecified; Z20.822 Contact with and (suspected) exposure to COVID-19; Z3A.39 39 weeks gestation of pregnancy
CPT/HCPCS: 01967; 36415; 51702; 59025; 59409; 85027; 86592; 86850; 86900; 86901; A9270-GY; J2210; J2405; J2590; J3010; J3490; J7120; U0002

== ENCOUNTER 2023-04-06 14:06 | Inpatient (IN) | payer BC ==
[2023-04-06] MEDS ORDERED: Nalbuphine HCl 10 MG/ 1ML Amp IVPUSH PRN (14:18)
[2023-04-06] MEDS ORDERED: Ondansetron 4 MG/2 ML SDV IVPUSH PRN (14:18)
[2023-04-06] MEDS ORDERED: Lidocaine 1% 50 ML MDV INJECT PRN (14:18)
[2023-04-06] MEDS ORDERED: Calcium Carbonate 500 MG Tab.Chew PO PRN (14:18)
[2023-04-06 14:37] LABS: BASOPHILS PERCENT AUTO 0.1 % (0.0-1.0); EOSINOPHILS PERCENT AUTO 0.3 % (0.0-6.0); HEMATOCRIT 35.9 % (37.0-47.0); HEMOGLOBIN 11.9 gm/dl (12.0-16.0); IMMATURE GRAN ABSOLUTE AUTO 0.03 K/mm3 (0.00-0.05); IMMATURE GRAN PERCENT AUTO 0.4 % (0.0-0.4); LYMPHOCYTES PERCENT AUTO 28.7 % (24.0-44.0); MEAN CORPUSCULAR HEMOGLOBIN 31.1 pg (28.0-32.0); MEAN CORPUSCULAR HGB CONC 33.1 g/dl (32.0-36.0); MEAN CORPUSCULAR VOLUME 93.7 fl (83.0-99.0); MEAN PLATELET VOLUME 9.1 fl (9.4-12.3); MONOCYTES ABSOLUTE AUTO 0.5 K/mm3 (0.0-0.8); MONOCYTES PERCENT AUTO 7.7 % (0.0-8.0); NEUTROPHILS ABSOLUTE AUTO 4.4 K/mm3 (1.8-7.7); NEUTROPHILS PERCENT AUTO 62.8 % (41.0-71.0); PLATELET COUNT,PLT 217 K/mm3 (150-400); RED BLOOD CELL COUNT 3.83 M/mm3 (4.10-5.30); WHITE BLOOD CELL COUNT,WBC 7.04 K/mm3 (3.9-11.3)
[2023-04-06] MEDS ORDERED: Oxytocin/Lactated Ringers 30 UNIT/500 ML BAG IV SCH ×2 (15:15→15:30)
[2023-04-06] MEDS: Lactated Ringers 1,000 ML IV SCH ×2 (15:18→18:01)
[2023-04-06] MEDS ORDERED: Bupivacaine/fentaNYL/NS 100 ML Bag EPIDUR PRN (17:18)
[2023-04-06] MEDS ORDERED: diphenhydrAMINE 50 MG/ML SDV IVPUSH PRN (17:18)
[2023-04-06] MEDS ORDERED: fentaNYL 100 MCG/2 ML SDV EPIDUR PRN (17:18)
[2023-04-06] MEDS ORDERED: ePHEDrine 50 MG/ML SDV IVPUSH PRN (17:18)
[2023-04-06] MEDS ORDERED: Acetaminophen 325 MG Tab PO ONE (21:50)
[2023-04-07] MEDS ORDERED: Docusate Sodium 100 MG Cap PO PRN (01:20)
[2023-04-07] MEDS ORDERED: Acetaminophen 325 MG Tab PO PRN (01:20)
[2023-04-07] MEDS ORDERED: Benzocaine/Menthol 20%-0.5% Spray 78 GM Cannister TOP PRN (01:20)
[2023-04-07] MEDS ORDERED: Witch Hazel Medicated Pads 40/Jar TOP PRN (01:20)
[2023-04-07] MEDS: Ibuprofen 600 MG Tab PO PRN ×2 (05:03→11:09)
[2023-04-07] MEDS: Citalopram 20 MG Tab PO SCH ×2 (09:30→09:46)
[2023-04-07 16:43] VITALS: BP 133/82; PULSE 86
== END 2023-04-07 17:05 | disposition home or self-care (01) | DRG 560 ==
LOC: JD.OB 14:06 → OBSVTOIN 23:46 → JD.OB 23:46
PROVIDERS: ADMIT Obstetrics & Gynecology; ATTEND Obstetrics & Gynecology
PROC: 10E0XZZ Delivery of Products of Conception, External Approach (ICD-10-PCS; principal; 2023-04-06)
PROC: 10907ZC Drainage of Amniotic Fluid, Therapeutic from Products of Conception, Via Natural or Artificial Opening (ICD-10-PCS; 2023-04-06)
PROC: 3E033VJ Introduction of Other Hormone into Peripheral Vein, Percutaneous Approach (ICD-10-PCS; 2023-04-06)
DX: O99.344 Other mental disorders complicating childbirth (principal); Z37.0 Single live birth; F32.A Depression, unspecified; Z3A.39 39 weeks gestation of pregnancy; Z86.16 Personal history of COVID-19; Z98.890 Other specified postprocedural states
CPT/HCPCS: 36415; 51701; 51702; 59025; 59409; 85025; 86592; 86850; 86900; 86901; A9270-GY; J3010; J3490; J7120; J7999

== ENCOUNTER 2023-10-13 18:42 | Emergency (ER) | payer BC ==
[2023-10-13] MEDS ORDERED: Sodium Chloride 0.9% 10 ML Syringe FLUSH PRN (19:29)
[2023-10-13 20:01] LABS: BASOPHILS ABSOLUTE AUTO 0.1 K/mm3 (0.0-0.2); BASOPHILS PERCENT AUTO 0.5 % (0.0-1.0); EOSINOPHILS ABSOLUTE AUTO 1.2 K/mm3 (0.0-0.4); EOSINOPHILS PERCENT AUTO 12.2 % (0.0-6.0); HEMATOCRIT 40.8 % (37.0-47.0); HEMOGLOBIN 14.2 gm/dl (12.0-16.0); IMMATURE GRAN ABSOLUTE AUTO 0.08 K/mm3 (0.00-0.05); IMMATURE GRAN PERCENT AUTO 0.8 % (0.0-0.4); LYMPHOCYTES ABSOLUTE AUTO 3.6 K/mm3 (1.0-4.8); MEAN CORPUSCULAR HEMOGLOBIN 30.6 pg (28.0-32.0); MEAN CORPUSCULAR HGB CONC 34.8 g/dl (32.0-36.0); MEAN CORPUSCULAR VOLUME 87.9 fl (83.0-99.0); MEAN PLATELET VOLUME 9.2 fl (9.4-12.3); MONOCYTES ABSOLUTE AUTO 0.8 K/mm3 (0.0-0.8); MONOCYTES PERCENT AUTO 7.9 % (0.0-8.0); NEUTROPHILS ABSOLUTE AUTO 4.2 K/mm3 (1.8-7.7); NEUTROPHILS PERCENT AUTO 42.6 % (41.0-71.0); PLATELET COUNT,PLT 277 K/mm3 (150-400); RED BLOOD CELL COUNT 4.64 M/mm3 (4.10-5.30); WHITE BLOOD CELL COUNT,WBC 9.87 K/mm3 (3.9-11.3)
[2023-10-13 20:21] LABS: A/G RATIO 1.1 (1-2); ALBUMIN 3.6 g/dl (3.4-5.0); ANION GAP 12.8 (5-15); BILIRUBIN TOTAL 0.5 mg/dL (0.2-1.0); C-REACTIVE PROTEIN 1.53 mg/dL (<0.30); EST CRCL DRUG DOSING (CG) 74.69 mL/min; MAGNESIUM 1.5 mg/dL (1.8-2.4); POTASSIUM,K 2.8 mEq/L (3.5-5.1)
[2023-10-13 21:46] VITALS: BP 135/85; PULSE 88
== END 2023-10-13 21:47 | disposition home or self-care (01) ==
LOC: JD.ED 18:42
DX: R19.7 Diarrhea, unspecified (principal); T38.3X5A Adverse effect of insulin and oral hypoglycemic [antidiabetic] drugs, initial encounter; K21.9 Gastro-esophageal reflux disease without esophagitis; Z86.16 Personal history of COVID-19; Z79.899 Other long term (current) drug therapy
CPT/HCPCS: 36415; 80053; 83735; 85025; 86140; 99284

== ENCOUNTER 2023-11-24 10:25 | Emergency (ER) | payer BC, MEDICAID ==
[2023-11-24] MEDS: Sodium Chloride 0.9% 10 ML Syringe FLUSH PRN (10:53)
[2023-11-24] MEDS: Ketorolac 30 MG/ML SDV IVPUSH ONE (10:55)
[2023-11-24] MEDS: Metoclopramide 10 MG/2 ML SDV IVPUSH ONE (10:57)
[2023-11-24] MEDS: diphenhydrAMINE 50 MG/ML SDV IVPUSH ONE (11:02)
[2023-11-24 11:39] LABS: CORONAVIRUS COVID-19 NAA NEGATIVE (NEGATIVE); INFLUENZA A NAA NEGATIVE (NEGATIVE); RESPIRATORY SYNCYTIAL VIR NAA NEGATIVE (NEGATIVE)
[2023-11-24 13:06] VITALS: BP 102/63; PULSE 92
== END 2023-11-24 13:06 | disposition home or self-care (01) ==
LOC: JD.ED 10:25
DX: G43.909 Migraine, unspecified, not intractable, without status migrainosus (principal); Z86.16 Personal history of COVID-19; Z79.899 Other long term (current) drug therapy
CPT/HCPCS: 0241U; 70450; 96374; 96375; 99285; J1200; J1885; J2765; J3490